=== PATIENT | male | born 1985 | race Caucasian/White ===

== ENCOUNTER 2024-04-02 16:28 | Emergency (ER) | payer SELFPAY ==
[2024-04-02 16:33] VITALS: BP 121/75; PULSE 71; RESP 16; TEMP 36.5; O2SAT 97; BMI 29.0
--- NOTE | 2024-04-02 16:55 | ED_ITS ---
HPI - Extremity Problem 2 General: Chief complaint: Wound/Laceration Stated complaint: left leg pain Time Seen by Provider: 04/02/24 16:44 Source: patient Mode of arrival: ambulatory Limitations: no limitations History of Present Illness: Patient is a 38-year-old male presents to ED today second opinion involving his left lower leg. Patient states he initially sustained an abrasion on the anterior aspect of his left lower leg approximately 3 weeks ago while clearing some brush. He states after his initial injury, he noticed significant erythema and edema to the lower leg. He was subsequently placed on Bactrim and Keflex. Patient did notice a significant amount of improvement however he still has some edema and erythema and still has a small wound to anterior leg. He was reseen at the clinic today and they placed him on a longer course of Bactrim (1 tablet twice daily x 12 days). Patient states he is here in the emergency department for a second opinion. He was reportedly told that he could lose his leg. Patient states he has been ambulating on the extremity without difficulty or pain. No systemic symptoms. They did reportedly try and culture the small amount of drainage in clinic today. MD Complaint: extremity pain and extremity swelling Onset (ago): week(s) Pain Consistency: constant Location: left and lower extremity Radiation: none Relieving factors: other (improving while on abx) Associated symptoms: Reports no associated symptoms; Deny fever(s) Related Data Allergies Allergy/AdvReac Type Severity Reaction Status Date / Time No Known Allergies Allergy Verified 04/02/24 16:40 Review of Systems 2 Const: Denies: fever(s), chills, body aches, fatigue or malaise Musc: Reports: extremity swelling; Denies: joint pain, joint swelling, joint redness or joint warmth Skin/Breast: Reports: erythema Neuro: Denies: numbness in extremities, sensory changes or difficulty walking Physical Exam 2 Const: COMMON NORMALS: no acute distress, average body habitus, no limitations, healthy appearing, alert and well nourished Extremity: COMMON NORMALS: full ROM, capillary refill normal, no joint enlargement and no calf tenderness GENERAL: Yes normal exam except as noted LEFT LOWER EXTREMITY: Yes lower leg EXTREMITY IMAGE (FRONT): 1. mild cellulitis/edema; small 0.75cm wound to anterior lower leg overlying tibial shaft with scant drainage that was earlier cultured; no underlying fluctuance to suggest abscess; no streaking; no calf pain; cellulitis is not circumferential Neuro: COMMON NORMALS: moves all extremities, no focal motor deficits and no sensory deficits noted SENSORIUM/ORIENTATION: Yes alert Skin: NARRATIVE SKIN EXAM: see above Course 2 Vital Signs: Vital signs: Vital Signs Temperature 97.7 F 04/02/24 16:33 Pulse Rate 71 04/02/24 16:33 Respiratory Rate 16 04/02/24 16:33 Blood Pressure 121/75 04/02/24 16:33 Pulse Oximetry 97 04/02/24 16:33 Oxygen Delivery Me thod Room Air 04/02/24 16:33 MDM - Extremity (Nontraumatic) Medical Decision Making Patient states he did get quite a bit of initial response following his first round of antibiotics. He has obtained a new prescription today continuing his Bactrim for another 12 days which I think is reasonable. I do not see any evidence of underlying abscess that would need to be incised and drained today. Systemic symptoms. No evidence of abscess, deep space infection, compartment syndrome, osteomyelitis. Recommend he follow-up with the culture and sensitivity report next week. Return to ED precautions given. Medical Records I reviewed the patient's medical records. No radiology studies performed this visit Discharge Plan Discharge Patient Disposition: Home Clinical Impression: Cellulitis of left leg Condition: Stable Discharge Orders: Discharge ED (Routine); Ordered 04/02/24 Ordered By: Tara Mondragon Patient Instructions: Cellulitis (ED) Activity Restrictions/Additional Instructions: As we discussed, continue your Bactrim as prescribed. Follow-up on your culture and sensitivity report next week. You need to seek medical reevaluation for worsening symptoms such as worsening redness, warmth, streaking up your leg, worsening pain, fevers, difficulty walking, or any other concerns you may have. Print Language: Yi Coding Level of Care Code ED Statistical Methods Teacher for Almita Medley
[2024-04-02 17:05] VITALS: BP 113/66; PULSE 63; RESP 16; O2SAT 98
== END 2024-04-02 17:06 | disposition home or self-care (01) ==
PROVIDERS: Emergency Provider Physician Assistant
DX: L03.116 Cellulitis of left lower limb (principal)
CPT/HCPCS: 99283